=== PATIENT | female | born 1955 | race African-American/Black ===

== ENCOUNTER 2018-03-13 09:47 | Day surgery (SDC) | payer OTHER ==
[2018-03-09 10:41] VITALS: BMI 31.8
[2018-03-13] MEDS ORDERED: PROPOFOL 20 ML ONE ×2 (10:49)
[2018-03-13 13:11] VITALS: BP 128/80; PULSE 66; TEMP 97.9
== END 2018-03-13 12:50 | disposition home or self-care (01) ==
LOC: FASU-ENDO 09:47
PROVIDERS: ATTEND Internal Medicine Gastroenterology
PROC: 0DJD8ZZ Inspection of Lower Intestinal Tract, Via Natural or Artificial Opening Endoscopic (ICD-10-PCS; principal; 2018-03-13 11:48)
DX: Z12.11 Encounter for screening for malignant neoplasm of colon (principal)

== ENCOUNTER 2025-01-30 20:14 | Inpatient (IN) | payer OTHER ==
[2025-01-30] MEDS ORDERED: ACETAMINOPHEN INJECTION 100 ML ONE (21:26)
[2025-01-30] MEDS: ACETAMINOPHEN 1000 MG/100 ML BAG IVPB ONE (21:43)
[2025-01-30] MEDS: SODIUM CHLORIDE 1,000 ML IV ONE (21:43)
[2025-01-30] MEDS ORDERED: cefTRIAXone SODIUM 1 GM VIAL ONE (21:46)
[2025-01-30] MEDS ORDERED: AZITHROMYCIN 500 MG VIAL IVPB ONE (21:46)
[2025-01-30 21:50] LABS: HEMOGLOBIN 11.9 g/dL (11.2-15.7); RDW 13.9 % (12.4-16.4)
[2025-01-30 21:58] LABS: HEMATOCRIT 34.4 % (34.1-44.9); MCHC 34.6 g/dl (32.2-35.5); MEAN PLT VOLUME 10.5 fl (9.4-12.3); PLATELET COUNT 115 x10^3/uL (182-369)
[2025-01-30] MEDS: AZITHROMYCIN IVPB 500 MG in DEXTROSE 5%-WATER - 250 ML IVPB ONE (21:59)
[2025-01-30] MEDS: CEFTRIAXONE 1,000 MG in DEXTROSE 5%-WATER - 50 ML IVPB ONE (21:59)
[2025-01-30 22:07] LABS: BILIRUBIN,TOTAL 5.1 mg/dl (0.2-1); CALCIUM 8.5 mg/dl (8.5-10.1); CREATININE 1.2 mg/dl (0.6-1.3); TOT PROT 5.6 g/dl (6.4-8.2)
[2025-01-30 22:15] LABS: POTASSIUM 2.6 mmol/L (3.5-5.1)
[2025-01-30] MEDS ORDERED: POTASSIUM CHLORIDE TABS 20 MEQ TABLET.ER (FP) PO ONE (22:32)
[2025-01-30] MEDS: KCL 20 MEQ PREMIX BAG 20 MEQ/100 ML INFUS.BAG IVPB SCH (22:38)
[2025-01-30] MEDS: POTASSIUM CHLORIDE TABS 20 MEQ TABLET.ER (FP) PO ONE (22:38)
[2025-01-30] MEDS: KCL 10 MEQ IVPB 10 MEQ/100 ML INFUS.BAG IVPB SCH (22:39)
[2025-01-30 22:58] LABS: VENOUS BASE EXCESS -0.1 mmol/L (-2-2); VENOUS O2 SATURATION 73.3 % (70-80); VENOUS PCO2 33.9 mmHg (38-52); VENOUS PH 7.456 (7.310-7.410)
[2025-01-31 04:13] VITALS: BMI 25.9
[2025-01-31] MEDS ORDERED: VANCOMYCIN 1,000 MG in DEXTROSE 5%-WATER - 250 ML IVPB SCH (04:30)
[2025-01-31] MEDS ORDERED: PIPERACILLIN/TAZOB 3.375 GM 3.375 GM in DEXTROSE 5%-WATER - 50 ML IVPB SCH (04:30)
[2025-01-31] MEDS: KETOROLAC TROMETHAMINE 15 MG/ML VIAL IVPUSH PRN (04:59)
[2025-01-31] MEDS: guaiFENesin 200 MG/10 ML 10 ML UNIT-DOSE CUPS PO PRN (04:59)
[2025-01-31] MEDS: SODIUM CHLORIDE 1,000 ML IV STA (05:00)
[2025-01-31] MEDS: PIPERACILLIN/TAZOB 3.375 GM 3.375 GM in DEXTROSE 5%-WATER - 50 ML IVPB SCH (05:18)
[2025-01-31] MEDS: VANCOMYCIN/WATER FOR INJ (PEG) 1,000 MG/200 ML BAG IVPB SCH (05:54)
[2025-01-31 06:52] LABS: HEMATOCRIT 29.4 % (34.1-44.9); HEMOGLOBIN 10.1 g/dL (11.2-15.7); MCHC 34.4 g/dl (32.2-35.5)
[2025-01-31 06:53] LABS: MEAN CELL VOLUME 97.4 fl (79.4-94.8); PLATELET COUNT 103 x10^3/uL (182-369); RDW 13.9 % (12.4-16.4)
[2025-01-31 07:07] LABS: CHLORIDE 107 mmol/L (98-107); SODIUM 138 mmol/L (136-145)
[2025-01-31 07:19] LABS: CALCIUM 7.9 mg/dL (8.5-10.1)
[2025-01-31 07:20] LABS: ALBUMIN 2.7 g/dl (3.4-5.0); BLOOD UREA NITROGEN 12.9 mg/dL (7-18); CO2 22 mmol/L (21-32); GLUCOSE,RANDOM 164 mg/dL (74-106); MAGNESIUM 1.6 mg/dL (1.8-2.4)
[2025-01-31 07:22] LABS: SGOT/AST 105 U/L (15-37); SGPT/ALT 125 U/L (13-61)
[2025-01-31 07:23] LABS: CREATININE 0.8 mg/dL (0.55-1.3)
[2025-01-31 07:24] LABS: BILIRUBIN,TOTAL 4.9 mg/dL (0.2-1); TOT PROT 4.8 g/dl (6.4-8.2)
[2025-01-31 07:25] LABS: ALK PHOS 157 U/L (45-117)
[2025-01-31 07:32] LABS: ANION GAP 9 mmol/L (4-13); POTASSIUM 2.9 mmol/L (3.5-5.1)
[2025-01-31] MEDS ORDERED: MAGNESIUM SULFATE IN WATER 2 GM/50 ML IVPB IVPB ONE (08:44)
[2025-01-31] MEDS ORDERED: KCL 10 MEQ IVPB 10 MEQ/100 ML INFUS.BAG IVPB SCH (08:45)
[2025-01-31] MEDS ORDERED: PATIENT'S OWN MEDICATION (NON-FORMULARY) (Ruxolitinib Phosphate [Jakafi] 5 MG Tablet) PO SCH (10:00)
[2025-01-31] MEDS ORDERED: LETERMOVIR 480 MG PO SCH (10:00)
[2025-01-31] MEDS: POTASSIUM CHLORIDE ORAL LIQUID 20 MEQ/15 ML PO ONE (10:52)
[2025-01-31] MEDS: TBO-FILGRASTIM 300 MCG/0.5 ML DISP.SYRINGE SQ ONE (10:52)
[2025-01-31] MEDS: POTASSIUM PHOSPHATE 15 MM in DEXTROSE 5%-WATER - 250 ML IVPB ONE (10:55)
[2025-01-31] MEDS: MAGNESIUM SULFATE IN WATER 2 GM/50 ML IVPB IVPB ONE (11:17)
[2025-01-31] MEDS: valACYclovir HCL 500 MG TABLET (FP) PO SCH (11:18)
[2025-01-31 14:34] LABS: HEPATITIS B SURF AG NON-MATERN NON-REACTIVE (NONREACTIVE)
[2025-01-31 15:04] LABS: HCV DIAGNOSTIC IN-HOUSE W/RFLX NON-REACTIVE (NONREACTIVE)
[2025-01-31 15:31] LABS: POTASSIUM 3.4 mmol/L (3.5-5.1)
[2025-01-31 15:36] LABS: PHOSPHOROUS 1.4 mg/dL (2.5-4.9)
[2025-01-31] MEDS ORDERED: POTASSIUM CHLORIDE ORAL LIQUID 20 MEQ/15 ML PO ONE (15:37)
[2025-01-31] MEDS ORDERED: NAPH,MB-DB/K PH,MBDB POWDER PACKET PO SCH (15:45)
[2025-01-31 16:06] VITALS: BP 107/61; PULSE 99; RESP 18; TEMP 97.9
== END 2025-01-31 15:54 | disposition short-term general hospital (02) | DRG 809 ==
LOC: FER 20:14 → J4S 01-31 03:19
PROVIDERS: ADMIT Hospitalist; ATTEND Physician Assistant
DX: D70.9 Neutropenia, unspecified (principal); Z94.84 Stem cells transplant status; E87.6 Hypokalemia; I10 Essential (primary) hypertension; D61.818 Other pancytopenia; R50.81 Fever presenting with conditions classified elsewhere; R74.01 Elevation of levels of liver transaminase levels; R79.89 Other specified abnormal findings of blood chemistry; E83.39 Other disorders of phosphorus metabolism; E83.42 Hypomagnesemia
CPT/HCPCS: 0241U-QW; 36415; 71045-TC-FY; 76705-TC; 80053; 82803; 83605; 83735; 83880; 84100; 84132; 84484; 85025; 85027; 85379; 86704; 86708; 86803; 87040; 87186; 87340; 87517; 93005; 93010; 99285-25; J0131; J1447